=== PATIENT | female | born 1980 | race Caucasian/White ===

== ENCOUNTER 2016-05-11 00:37 | Emergency (ER) | payer MEDICAID, OTHER ==
[~2016-05-11] VITALS: Ht 165.1 cm; Wt 117.9 kg
[~2016-05-11 00:37] MED LIST: ADVIL200 MG PO; AMOXICILLIN500 MG ORAL; AMOXICILLIN500 MG PO; CLINDAMYCIN HC300 MG ORAL; COLACE100 MG/10 GT; IBUPROFEN600 MG ORAL; IBUPROFEN800 M1 PO; IBUPROFEN800 MG ORAL; IBUPROFEN800 MG PO; KEFLEX500 MG ORAL; LEVOTHYROXINE75 MCG ORAL; NORCO 5-325 TA1 EACH ORAL; NORCO1 EA ORAL; ONDANSETRON ODT8 MG PO; PERIDEX 0.12% O15 ML ORO; PERIDEX 0.12% O16 OZ PO; PLAN B ONE-STE1.5 MG PO; RANITIDINE HCL150 MG ORAL; SYNTHROID50 MCG PO; SYNTHROID75 MCG; SYNTHROID75 MCG ORAL; VALIUM5 MG ORAL; VICODIN 5-5001 EACH ORAL; VICODIN 5-5001 EACH PO; VICODIN ES 7.51 EAC1 ORAL
[2016-05-11] MEDS ORDERED: PODOFILOX3.5 ML TP (01:51)
--- NOTE | 2016-05-11 02:04 | Emergency Room Report ---
History of Present Illness General Chief Complaint: Skin Rash/Abscess Source: Patient Present Illness HPI 35 YO F presents with , also with similar rash, to suprapubic area. Started after her 's rash. Assoc with mild itch. Denies fever/chills, dysuria, abd pain, nausea/vomiting. Shaves in area. Denies pets, new soap/ detergent. Allergies: Coded Allergies: No Known Allergies (Unverified , 01/21/15) Patient History Past Medical History: none Past Surgical History: none Pertinent Family History: none Social History: Denies: alcohol use, drug use, smoking Last Menstrual Period: 04/26/16 Now: No Immunizations: UTD Reviewed Nursing Documentation: PMH: Agreed, PSxH: Agreed Nursing Documentation-PMH Past Medical History: No History, Except For Hx Diabetes: No Review of Systems All Other Systems: negative except mentioned in HPI Physical Exam Vital Signs Date Time Temp Pulse Resp B/P Pulse Ox O2 Delivery O2 Flow Rate FiO2 05/11/16 00:57 98.2 68 16 98/59 100 Room Air Sp02 EP Interpretation: reviewed, normal General Appearance: normal inspection, well appearing, no apparent distress, alert Head: atraumatic ENT: normal ENT inspection, hearing grossly normal, normal voice Neck: normal inspection, full range of motion, supple, no bony tend Respiratory: normal inspection, lungs clear, normal breath sounds, no respiratory distress, no retraction, no wheezing Cardiovascular #1: regular rate, rhythm, no edema Gastrointestinal: normal inspection, normal bowel sounds, non tender, soft, no guarding, no hernia Genitourinary: no CVA tenderness Musculoskeletal: normal inspection, back normal, normal range of motion, Michelle' s Sign negative Neurologic: normal inspection, alert, oriented x3, responsive, record cutter III-XII nml as tested, motor strength/tone normal, speech normal Psychiatric: normal inspection, judgement/insight normal, mood/affect normal Skin: normal inspection, other - 2-3 fleshy colored raised papules in left suprapubic area. No vesicles or blistering or erythema Medical Decision Making Diagnostic Impression: Primary Impression: Molluscum contagiosum ER Course 35 YO F with likely molluscum contagiousum. VSS. Afebrile. No associated cellulitis/folliculitis No systemic symptoms DC with Rx Podofilx, PMD followup for Derm referral Advised to wash linens, towels Last Vital Signs Date Time Temp Pulse Resp B/P Pulse Ox O2 Delivery O2 Flow Rate FiO2 05/11/16 00:57 98.2 68 16 98/59 100 Room Air Status: improved Disposition: HOME, SELF-CARE Condition: Improved Scripts Podofilox (PODOFILOX) 3.5 Ml Solution 3.5 ML TP BID for 3 Days, UNIT Prov: MARKO PRITCHARD M.D. 05/11/16 Referrals: NOT CHOSEN [facility]/MD,REFERRING (PCP) Patient Instructions: Molluscum Contagiosum, Adult, Cryosurgery for Skin Conditions, [id number] Additional Instructions: - Apply topical solution to affected area twice daily for 3 days then STOP USING FOR 4 DAYS. - You can re-do this cycle up to 4x until resolution - Follow up with your primary care doctor for a dermatology referral MARKO PRITCHARD M.D. May 11, 2016 02:04
[2016-05-11 02:09] VITALS: BP 138/84
== END 2016-05-11 02:10 | disposition home or self-care (01) ==
LOC: EMR 01:12
DX: B08.1 Molluscum contagiosum (principal)
CPT/HCPCS: 99283

== ENCOUNTER 2017-05-28 08:46 | Emergency (ER) | payer SELFPAY ==
[~2017-05-28] VITALS: Ht 165.1 cm; Wt 127.0 kg
[~2017-05-28 08:46] MED LIST changes: +PODOFILOX3.5 ML TP
[2017-05-28 09:06] VITALS: BP 127/81
[2017-05-28] MEDS ORDERED: DEBROX15 M1 LEFT EAR (09:14)
[2017-05-28] MEDS ORDERED: AMOXICILLIN500 MG ORAL (09:14)
[2017-05-28 09:20] VITALS: BP 127/81
--- NOTE | 2017-05-28 09:21 | Emergency Room Report ---
History of Present Illness General Chief Complaint: Earache Source: Patient Present Illness HPI 36-year-old female presents ED complaining of left ear pain. Patient states that she's been having intermittent ear pain for the last several weeks. Try [id number] ear drops to remove wax yesterday and states the pain got worse. Left-sided, throbbing, 5/10. Denies fevers or chills. Denies cough. Denies sick contacts or recent travel. No other aggravating or leading factors. Denies any other associated symptom Allergies: Coded Allergies: No Known Allergies (Unverified , 01/21/15) Patient History Past Medical History: none Past Surgical History: none Pertinent Family History: none Social History: Denies: smoking, alcohol use, drug use Last Menstrual Period: April Now: No Immunizations: UTD Reviewed Nursing Documentation: PMH: Agreed, PSxH: Agreed Nursing Documentation-PMH Past Medical History: No History, Except For Hx Diabetes: No Review of Systems All Other Systems: negative except mentioned in HPI Physical Exam Vital Signs Date Time Temp Pulse Resp B/P (MAP) Pulse Ox O2 Delivery O2 Flow Rate FiO2 05/28/17 08:59 97.3 67 20 121/80 98 Room Air Sp02 EP Interpretation: reviewed, normal General Appearance: no apparent distress, alert, GCS 15, non-toxic Head: normocephalic Eyes: bilateral eye normal inspection, bilateral eye PERRL ENT: normal pharynx, no angioedema, normal voice, other - L TM poor light reflex. partial cerumen impaction noted Neck: normal inspection Respiratory: normal inspection Cardiovascular #1: normal inspection Gastrointestinal: normal inspection Rectal: deferred Genitourinary: no CVA tenderness Musculoskeletal: normal inspection Neurologic: alert, oriented x3, responsive, motor strength/tone normal, sensory intact, speech normal Psychiatric: normal inspection Skin: normal inspection Lymphatic: normal inspection Medical Decision Making Diagnostic Impression: Primary Impression: Cerumen impaction Qualified Codes: H61.22 - Impacted cerumen, left ear Additional Impression: Otitis media Qualified Codes: H66.90 - Otitis media, unspecified, unspecified ear ER Course Hospital Course 36-year-old F presents to ED with pain L ear. no fever. Differential diagnoses include: TM perforation, otitis externa, otitis media Clinical course Patient placed on stretcher. After initial history, physical exam reveals a female in no acute distress. Left TM poor light reflex compared her right TM. Also left TM partially obscured by cerumen. Remainder physical exam unremarkable Diagnosis - otitis media, cerumen impaction Stable and discharged to home with Rx Carbamide peroxide, amoxicillin. Followup with PMD. Return to ED if symptoms recur or worsen Last Vital Signs Date Time Temp Pulse Resp B/P (MAP) Pulse Ox O2 Delivery O2 Flow Rate FiO2 05/28/17 09:06 97.3 65 20 127/81 98 Room Air Status: improved Disposition: HOME, SELF-CARE Condition: Stable Scripts Carbamide Peroxide (DEBROX) 15 Ml Drops 5 DROP LEFT EAR TWICE A DAY for 4 Days, ML 0 Refills Prov: HOWARD PHELAN M.D. 05/28/17 Amoxicillin* (AMOXIL*) 500 Mg Capsule 500 MG ORAL THREE TIMES A DAY for 10 Days, #30 CAP Prov: HOWARD PHELAN M.D. 05/28/17 Patient Instructions: Otitis Media, Adult HOWARD PHELAN M.D. May 28, 2017 09:21
== END 2017-05-28 09:20 | disposition home or self-care (01) ==
LOC: EMR 09:05
DX: H61.22 Impacted cerumen, left ear (principal); H66.92 Otitis media, unspecified, left ear
CPT/HCPCS: 99283

== ENCOUNTER 2017-06-14 20:27 | Emergency (ER) | payer SELFPAY ==
[~2017-06-14] VITALS: Ht 165.1 cm; Wt 127.0 kg
[~2017-06-14 20:27] MED LIST changes: +DEBROX15 M1 LEFT EAR
[2017-06-14 20:40] VITALS: BP 109/76
[2017-06-14 21:45] VITALS: BP 119/70
[2017-06-14] MEDS ORDERED: PSEUDOEPHEDRINE60 MG PO (21:53)
[2017-06-14] MEDS ORDERED: AZITHROMYCIN250 MG ORAL (21:53)
--- NOTE | 2017-06-14 21:53 | Emergency Room Report ---
History of Present Illness General Chief Complaint: Earache Source: Patient Present Illness HPI This is a 36-year-old female with no past medical history. She's been complaining of left ear pain the last 3 weeks. Candia popping sensation. Seen here and had cerumen impaction will prescribe Debrox and amoxicillin. Not getting better. No nausea no vomiting. Denies any drainage. No other complaint. Pain is 7/10. No URI symptoms. Allergies: Coded Allergies: No Known Allergies (Unverified , 01/21/15) Patient History Past Medical History: see triage record, old chart reviewed Past Surgical History: none Pertinent Family History: none Social History: Denies: smoking Last Menstrual Period: 2 months ago, has IUD Now: No : 2 Immunizations: other Reviewed Nursing Documentation: PMH: Agreed, PSxH: Agreed Nursing Documentation-PMH Hx Diabetes: No Review of Systems Eye: Denies: eye pain, blurred vision ENT: Reports: ear pain, Denies: nose congestion, throat swelling Respiratory: Denies: cough, shortness of breath Cardiovascular: Denies: chest pain, palpitations Gastrointestinal: Denies: abdominal pain, diarrhea, nausea, vomiting Musculoskeletal: Denies: back pain, joint pain Skin: Denies: rash Neurological: Denies: headache, numbness Endocrine: Denies: increased thirst, increased urine Hematologic/Lymphatic: Denies: easy bruising All Other Systems: negative except mentioned in HPI Physical Exam Vital Signs Date Time Temp Pulse Resp B/P (MAP) Pulse Ox O2 Delivery O2 Flow Rate FiO2 06/14/17 20:39 98.1 72 18 109/76 98 Room Air vitals normal Sp02 EP Interpretation: reviewed, normal General Appearance: well appearing, no apparent distress, alert Head: normocephalic, atraumatic Eyes: bilateral eye PERRL, bilateral eye EOMI ENT: hearing grossly normal, normal pharynx, other - Left ear with cerumen. After removing the cerumen, TM showed fluids. No perforation. Neck: full range of motion, supple, no meningismus Respiratory: chest non-tender, lungs clear, normal breath sounds Cardiovascular #1: regular rate, rhythm, no murmur Gastrointestinal: normal bowel sounds, non tender, no mass, no organomegaly, no bruit, non-distended Musculoskeletal: back normal, gait/station normal, normal range of motion Psychiatric: mood/affect normal Skin: warm/dry Procedures Additional Procedure Procedure Narrative Procedure: Cerumen disimpaction Indication: Cerumen impaction Description: I irrigated the canal with normal saline. Cerumen removed easily. No obstruction. No perforation. Patient tolerated procedure without a problem. Medical Decision Making Diagnostic Impression: Primary Impression: Cerumen impaction Qualified Codes: H61.22 - Impacted cerumen, left ear Additional Impression: Otitis media Qualified Codes: H65.02 - Acute serous otitis media, left ear ER Course She with otitis media with effusion. No perforation. Will treat with decongestants and change antibiotic group. No meningitis no sepsis. We'll discharge home. Last Vital Signs Date Time Temp Pulse Resp B/P (MAP) Pulse Ox O2 Delivery O2 Flow Rate FiO2 06/14/17 20:39 98.1 72 18 109/76 98 Room Air Status: improved Disposition: HOME, SELF-CARE Condition: Stable Scripts Azithromycin* (ZITHROMAX*) 250 Mg Tablet 250 MG ORAL DAILY, #6 TAB 0 Refills Take two tablets by mouth today, then take one tablet by mouth daily for four days Prov: RADHA PEREZ M.D. 06/14/17 Pseudoephedrine Hcl* (SUDAFED*) 60 Mg Tablet 60 MG PO Q6H, #30 TAB Prov: RADHA PEREZ M.D. 06/14/17 Patient Instructions: Otitis Media, Adult, [id number] Additional Instructions: Followup your DrKeith in 7 days. If not better, may need referral to see ENT DrKeith Return if symptom worsen. RADHA PEREZ M.D. Jun 14, 2017 21:53
== END 2017-06-14 22:15 | disposition home or self-care (01) ==
LOC: EMR 22:03
DX: H61.22 Impacted cerumen, left ear (principal); H66.92 Otitis media, unspecified, left ear
CPT/HCPCS: 69210; 99283

== ENCOUNTER 2018-07-05 20:00 | Emergency (ER) | payer OTHER ==
[~2018-07-05] VITALS: Ht 167.6 cm; Wt 122.5 kg
[~2018-07-05 20:00] MED LIST changes: +AZITHROMYCIN250 MG ORAL; +PSEUDOEPHEDRINE60 MG PO
--- NOTE | 2018-07-05 20:45 | NUR ---
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 Pain level 7/10. Pt is AO x 4times, VSS, on room air no distress. SHMUEL seen Pt at bedside.
[2018-07-05 20:46] VITALS: BP 111/69
[2018-07-05] MEDS ORDERED: TAMIFLU75 MG ORAL (21:00)
[2018-07-05] MEDS ORDERED: TYLENOL EXTRA500 MG ORAL (21:00)
[2018-07-05 21:20] VITALS: BP 111/69
--- NOTE | 2018-07-05 21:22 | NUR ---
ER DISCHARGE NOTE: Patient is cleared to be discharged per ERMD, pt is aox4, on room air, with stable vital signs. pt was given dc and prescription instructions, pt was able to verbalize understanding, pt id band and removed without complications. pt is able to ambulate with steady gait with boyfriend. pt took all belongings.
--- NOTE | 2018-07-07 21:24 | Emergency Room Report ---
History of Present Illness General Chief Complaint: Pain Source: Patient Present Illness HPI 37-year-old female presents ED for evaluation. Patient complaining of runny nose, cough, congestion, bodyaches last 2 days. Cough is productive with yellowish phlegm. Afebrile in triage. Pain is dull, 7 out of 10, nonradiating. 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 Did not receive flu shot this year. Denies sick contacts or recent travel. No other aggravating relieving factors. Denies any other associated symptoms Allergies: Coded Allergies: No Known Allergies (Unverified , 01/21/15) Patient History Past Medical History: other - hypothyroid Past Surgical History: none Pertinent Family History: none Social History: Denies: smoking, alcohol use, drug use Last Menstrual Period: current now Now: No Immunizations: UTD Reviewed Nursing Documentation: PMH: Agreed; PSxH: Agreed Nursing Documentation-PMH Hx Diabetes: No Review of Systems All Other Systems: negative except mentioned in HPI Physical Exam Vital Signs Date Time Temp Pulse Resp B/P (MAP) Pulse Ox O2 Delivery O2 Flow Rate FiO2 07/05/18 20:27 98.1 82 18 111/69 98 Room Air Sp02 EP Interpretation: reviewed, normal General Appearance: no apparent distress, alert, GCS 15, non-toxic Head: normocephalic, atraumatic Eyes: bilateral eye normal inspection, bilateral eye PERRL ENT: hearing grossly normal, normal pharynx, no angioedema, normal voice Neck: full range of motion, supple/symm/no masses Respiratory: chest non-tender, lungs clear, normal breath sounds, speaking full sentences Cardiovascular #1: regular rate, rhythm, no edema Cardiovascular #2: 2+ carotid (R), 2+ carotid (L), 2+ radial (R), 2+ radial (L) , 2+ dorsalis pedis (R), 2+ dorsalis pedis (L) Gastrointestinal: normal bowel sounds, non tender, soft, non-distended, no guarding, no rebound Rectal: deferred Genitourinary: normal inspection, no CVA tenderness Musculoskeletal: back normal, gait/station normal, normal range of motion, non- tender Neurologic: alert, oriented x3, responsive, motor strength/tone normal, sensory intact, speech normal Psychiatric: judgement/insight normal, memory normal, mood/affect normal, no suicidal/homicidal ideation Reflexes: 3+ bicep (R), 3+ bicep (L), 3+ tricep (R), 3+ tricep (L), 3+ knee (R) , 3+ knee (L) Skin: normal color, no rash, warm/dry, well hydrated Lymphatic: no adenopathy Medical Decision Making Diagnostic Impression: Primary Impression: Flu-like symptoms ER Course Hospital Course 37-year-old F presents to ED complaining of chills + bodyaches + cough Differential diagnoses include: URI, pharyngitis, otitis media, influenza Clinical course Patient placed on stretcher. After initial history physical exam reveals a young female in no acute distress. Bilateral TM unremarkable, no pharyngeal erythema. Lungs clear. No CVA tenderness. Clinical findings consistent with influenza. Given that I will treat her with Tamiflu Safe for discharge and close outpatient follow-up. I'll provide referrals Diagnosis - influenza-like symptoms Stable and discharged home with prescriptions for tamiflu, tylenol. drink plenty of fluids. Instructed to followup with PMD. Return to ED if symptoms recur or worsen Last Vital Signs Date Time Temp Pulse Resp B/P (MAP) Pulse Ox O2 Delivery O2 Flow Rate FiO2 07/05/18 21:20 98.1 87 18 111/69 98 Room Air Status: improved Disposition: HOME, SELF-CARE Condition: Stable Scripts Acetaminophen* (TYLENOL EXTRA STRENGTH*) 500 Mg Tablet 500 MG ORAL Q8H PRN for Prn Headache/Temp > 101, #30 TAB 0 Refills Prov: Mark Wood MD 07/05/18 Oseltamivir Phosphate (Tamiflu) 75 Mg Capsule 75 MG ORAL TWICE A DAY for 5 Days, CAP Prov: Mark Wood MD 07/05/18 Referrals: [facility],REFERRING (PCP) [facility] [place] [facility] Patient Instructions: Influenza, Adult, [id number] Mark Wood MD Jul 07, 2018 21:24
== END 2018-07-05 22:03 | disposition home or self-care (01) ==
LOC: EMR 20:47
DX: J11.1 Influenza due to unidentified influenza virus with other respiratory manifestations (principal)
CPT/HCPCS: 99282

== ENCOUNTER 2019-02-21 14:36 | Emergency (ER) | payer OTHER ==
[~2019-02-21] VITALS: Ht 167.6 cm; Wt 127.0 kg
[~2019-02-21 14:36] MED LIST changes: +TAMIFLU75 MG ORAL; +TYLENOL EXTRA500 MG ORAL
[2019-02-21] MEDS ORDERED: GEMFIBROZIL600 MG ORAL (14:47)
--- NOTE | 2019-02-21 15:09 | Emergency Room Report ---
History of Present Illness General Chief Complaint: Sore Throat Source: Patient Present Illness HPI 38-year-old female with no significant past medical history other than hypothyroidism currently controlled with levothyroxine here complaining of 3 weeks of sore throat, congestion and cough. Patient reports that started with a 10 out of 10 sore throat 3 weeks ago and that has subsided and has turned into sinus congestion, and a dry cough. Has been taking onsv-jqh-zsmrlvy medication with symptom relief. Also elicits minimal fatigue and reports that she has not had her thyroid hormones checked with her primary care in few months. Patient is taking 75 mcg of levothyroxine daily basis. Denies fever and chills, abdominal pain, nausea vomiting, wheezing, shortness of breath, chest pain and urinary symptoms. Allergies: Coded Allergies: No Known Allergies (Unverified , 01/21/15) Patient History Past Medical History: see triage record Past Surgical History: unable to obtain Pertinent Family History: none Last Menstrual Period: 01/27/19 Now: No : 2 Para: 2 Immunizations: UTD Reviewed Nursing Documentation: PMH: Agreed; PSxH: Agreed Nursing Documentation-PMH Past Medical History: No History, Except For Hx Diabetes: No Review of Systems All Other Systems: negative except mentioned in HPI Physical Exam Vital Signs Date Time Temp Pulse Resp B/P (MAP) Pulse Ox O2 Delivery O2 Flow Rate FiO2 02/21/19 14:43 98.2 86 18 139/85 (103) 96 Room Air Sp02 EP Interpretation: reviewed, normal General Appearance: no apparent distress, alert, GCS 15, non-toxic Head: normocephalic, atraumatic Eyes: bilateral eye normal inspection, bilateral eye PERRL ENT: no angioedema, normal voice, TMs + canals normal, pharyngeal erythema, other - Bilateral maxillary sinuses tender to palpation Neck: full range of motion, supple, no meningismus, supple/symm/no masses Respiratory: chest non-tender, lungs clear, normal breath sounds, no rhonchi, no wheezing, speaking full sentences Cardiovascular #1: normal inspection, normal peripheral pulses, no edema, no gallop, no murmur Gastrointestinal: normal inspection, non tender, soft Genitourinary: no CVA tenderness Musculoskeletal: back normal, digits/nails normal, gait/station normal Neurologic: alert, oriented x3, responsive, motor strength/tone normal, sensory intact, speech normal Psychiatric: judgement/insight normal, memory normal, mood/affect normal, no suicidal/homicidal ideation Skin: no rash Lymphatic: no adenopathy Medical Decision Making PA Attestation All my diagnosis and treatment plans were reviewed ad discussed with my supervising physician Dr. Thao Diagnostic Impression: Primary Impression: Sinusitis ER Course 38-year-old female with no significant past medical history other than hypothyroidism currently controlled with levothyroxine here complaining of 3 weeks of sore throat, congestion and cough. Patient reports that started with a 10 out of 10 sore throat 3 weeks ago and that has subsided and has turned into sinus congestion, and a dry cough. Has been taking rxsy-vrb-wkdwyud medication with symptom relief. Also elicits minimal fatigue and reports that she has not had her thyroid hormones checked with her primary care in few months. Patient is taking 75 mcg of levothyroxine daily basis. Denies fever and chills, abdominal pain, nausea vomiting, wheezing, shortness of breath, chest pain and urinary symptoms. Ddx considered but are not limited to: strep pharyngitis, URI, tonsillitis, sinusitis Vital signs: are WNL, pt. is afebrile H&PE are most consistent with: Sinusitis ORDERS: Amoxicillin, Phenergan, ED INTERVENTIONS: None required at this time. DISCHARGE: At this time pt. is stable for d/c to home. Will provide printed patient care instructions, and any necessary prescriptions. Care plan and follow up instructions have been discussed with the patient prior to discharge. Patient to follow-up with her primary care provider take medication as directed and if worsening symptoms return to the emergency room Last Vital Signs Date Time Temp Pulse Resp B/P (MAP) Pulse Ox O2 Delivery O2 Flow Rate FiO2 02/21/19 14:43 98.2 86 18 139/85 (103) 96 Room Air Disposition: HOME, SELF-CARE Condition: Stable Scripts Promethazine Hcl (PROMETHAZINE HCL*) 6.25 Mg/5 Ml Syrup 5 ML ORAL Q6H, #120 ML 0 Refills Prov: Nancy Quintanilla 02/21/19 Amoxicillin* (AMOXIL*) 500 Mg Capsule 500 MG ORAL EVERY 12 HOURS for 10 Days, #20 CAP Prov: Nancy Quintanilla 02/21/19 Referrals: [facility],REFERRING (PCP) Patient Instructions: Sinusitis, Adult, Heyp-[id number] Additional Instructions: Take medication as directed, follow-up with your primary care provider, if worsening symptoms return to emergency room. Your sinus can be secondary to your hypothyroidism thyroid hormone levels to be checked with your primary care physician. Nancy Quintanilla Feb 21, 2019 15:09
[2019-02-21] MEDS ORDERED: AMOXICILLIN500 MG ORAL (15:10)
[2019-02-21] MEDS ORDERED: PROMETHAZI6.25 MG/1 ORAL (15:10)
--- NOTE | 2019-02-21 15:15 | NUR ---
ER DISCHARGE NOTE: Patient is cleared to be discharged per ERMD, pt is aox4, on room air, with stable vital signs. pt was given dc and prescription instructions, pt was able to verbalize understanding, pt is able to ambulate with steady gait. pt took all belongings.
[2019-02-21 15:26] VITALS: BP 139/85
[2019-02-21 15:30] VITALS: BP 139/85
== END 2019-02-21 15:32 | disposition home or self-care (01) ==
LOC: EMR 14:54
DX: J32.9 Chronic sinusitis, unspecified (principal); E03.9 Hypothyroidism, unspecified
CPT/HCPCS: 99282